=== PATIENT | male | born 1940 | race Caucasian/White ===

== ENCOUNTER → 2021-03-25 | Outpatient (CLI) | payer MEDICARE ==
[~2021-03-25] MED LIST: AMLO-187 PO; ASPI325T8 PO; CLOP75TA PO; COLE1TAB2 PO; FERR-36 PO; ISOS30TA68 PO; LEVO112T49 PO; LISI20TA18 PO; LORA2TAB89 PO; OXYC1TAB22 PO; PANT40TA77 PO
== END ==
LOC: LAB 12:28
PROVIDERS: ATTEND Surgery
DX: Z01.812 Encounter for preprocedural laboratory examination (principal); Z20.822 Contact with and (suspected) exposure to COVID-19; K40.90 Unilateral inguinal hernia, without obstruction or gangrene, not specified as recurrent
CPT/HCPCS: U0003; U0005

== ENCOUNTER 2021-03-30 07:27 | Observation (INO) | payer MEDICARE ==
[~2021-03-30 07:27] MED LIST changes: +HYDROmorphone 2 MG/ML VIAL IVP PRN; +IV RINGERS,LACTATED 1000ML 1,000 ML IV SCH; +PROCHLORPERAZINE 10 MG/2 ML VIAL. IVP PRN; +fentaNYL PF VIAL 100 MCG/2 ML VIAL IVP PRN
[2021-03-30] MEDS ORDERED: BUPIVACAINE-EPI 0.5%-1:200000 MPF 30 ML VIAL. ONE (09:02)
[2021-03-30] MEDS ORDERED: PROPOFOL 10 MG/ML (20ML) VIAL. IV ONE (09:04)
[2021-03-30] MEDS ORDERED: LIDOCAINE 2% PF 5 ML VIAL. ONE (09:05)
[2021-03-30] MEDS ORDERED: fentaNYL PF VIAL 100 MCG/2 ML VIAL ONE ×2 (09:05→10:56)
[2021-03-30] MEDS ORDERED: DEXAMETHASONE SOD PHOS 4 MG/ML VIAL ONE ×2 (09:29→09:49)
[2021-03-30] MEDS ORDERED: ONDANSETRON PF 4 MG/2 ML VIAL. ONE (09:49)
[2021-03-30] MEDS ORDERED: SEVOFLURANE 31 TO 60 MINUTES. IH ONE (09:49)
[2021-03-30] MEDS ORDERED: ePHEDrine PF IN SALINE 50 MG/10 ML SYRINGE. IV ONE (10:01)
[2021-03-30] MEDS: fentaNYL PF VIAL 100 MCG/2 ML VIAL IVP PRN ×2 (10:59→11:09)
[2021-03-30] MEDS ORDERED: HYDROmorphone 2 MG/ML VIAL IV PRN (11:00)
[2021-03-30] MEDS ORDERED: ONDANSETRON PF 4 MG/2 ML VIAL. IVP PRN (11:00)
[2021-03-30] MEDS ORDERED: NALOXONE 0.4 MG/ML VIAL. IV PRN (11:00)
[2021-03-30] MEDS ORDERED: IV NORMAL SALINE 1000ML BAG 1,000 ML IV SCH (11:00)
[2021-03-30] MEDS ORDERED: HYDROcodone/APAP 5/325MG 1 TAB TABLET PO PRN ×2 (11:00)
[2021-03-30] MEDS ORDERED: oxyCODONE/APAP 5/325 1 TAB TABLET PO PRN ×2 (11:00→11:15)
[2021-03-30] MEDS ORDERED: IV 1/2 NORMAL SALINE 1,000 ML IV SCH (11:00)
[2021-03-30] MEDS ORDERED: 0.9 % SODIUM CHLORIDE 10 ML DISP.SYRIN. IV PRN (11:00)
--- NOTE | 2021-03-30 11:06 | PDOC4 ---
Operative Note Operative Note Operative Note: Preoperative Diagnosis: Left inguinal hernia Postoperative Diagnosis: Left inguinal hernia Procedure: Left inguinal hernia repair with mesh Surgeon: Rickie Cargo Mate: Nehal ESQUIVEL Anesthesia: General EBL: 10 mL Specimen: Hernia sac to pathology Drains: None Complications: None Indication: The patient is an 81-year-old male who was referred due to a left inguinal hernia. He was offered surgical repair. The risks of surgery were discussed which include bleeding, infection, recurrence, pain, anesthetic risk, potential need for additional surgery procedure. He understands and would like to proceed. Description: The patient was taken the operating room and placed supine in the operating table. General anesthesia was performed. The left groin was shaved and prepped with ChloraPrep and draped in a standard surgical manner. An incision was made in the skin lines of left groin. Cautery dissection was carried down to the external oblique aponeurosis. The aponeurosis was opened down to the external ring. The contents of the inguinal canal were digitally mobilized and encircled with a Wayne drain. The patient had a moderate sized indirect hernia sac. There was no indirect hernia however there was some generalized weakening of the floor. The hernia sac was mobilized from the surro unding cord structures. Due to its redundancy we elected to excise a portion of it and the stump was oversewn with 2-0 Vicryl. The excised sac was sent as a specimen to pathology. The stump was inverted and the defect filled with an extra-large Phasix mesh plug. The plug was sutured into position with 2-0 Vicryl. The entire inguinal floor was then reinforced with a Prolene keyhole mesh patch. The patch was sutured into position with 2-0 Vicryl. The external oblique was closed over the mesh with 2-0 Vicryl. The subcutaneous tissue was closed with 2-0 Vicryl. The skin was approximated with 4-0 Monocryl and infiltrated with half percent Marcaine with epinephrine. Steri-Strips and a sterile dressing were applied. The patient tolerated the procedure well and was sent to the recovery room in stable condition. At the end of the case all counts were correct. DUNG JACKSON MD March 30, 2021 11:06
[2021-03-30] MEDS ORDERED: MORPHINE SULFATE 2 MG/ML VIAL. ONE ×2 (11:11→11:29)
[2021-03-30] MEDS: MORPHINE SULFATE 2 MG/ML VIAL. IVP PRN ×4 (11:15→11:45)
[2021-03-30] MEDS ORDERED: PANTOPRAZOLE 40 MG TABLET.DR. PO SCH (11:30)
[2021-03-30] MEDS ORDERED: PROCHLORPERAZINE 10 MG/2 ML VIAL. ONE (11:31)
[2021-03-30] MEDS ORDERED: HYDROmorphone 2 MG/ML VIAL ONE (11:53)
[2021-03-30] MEDS ORDERED: ISOSORBIDE MONONITRATE ER 30 MG TAB.ER.24H PO SCH (12:00)
[2021-03-30] MEDS ORDERED: amLODIPine BESYLATE 10 MG TABLET PO SCH (12:00)
[2021-03-30] MEDS ORDERED: FERROUS SULFATE 325 MG TABLET. PO SCH (12:00)
[2021-03-30] MEDS ORDERED: LISINOPRIL 20 MG TABLET PO SCH (12:00)
[2021-03-30] MEDS ORDERED: COLESTIPOL HCL 1 GM TABLET PO SCH (14:00)
[2021-03-30 15:00] VITALS: BP 154/61
--- NOTE | 2021-03-30 16:00 | NUR ---
i.e. ADMISSION: Patient arrived to unit at 12:17PM post surgery. Given x1 dose of IV dilauded for pain 8/10 LLQ and after 30 minutes given percocet as ordered. Patient A&O x4, lungs clear to auscultation, no weakness noted, surgical dressing to LLQ c/d/i with no shadowing. Vital signs stable and pain reduced to 4/10 LLQ with oral pain medication. Approximately 1500 patient requested this nurse to page Dr. Damian and request discharge, as he was told by physician surgery could be done outpatient if he felt well enough. Patient able to ambulate safely throughout room, drinking and eating, and urinating per baseline. All systems assessed and within normal limits except for LLQ abdominal pain r/t surgery. Patient provided with prescription for pain medications as written by Dr. Damian and obtained order for discharge. Patient and given post surgical instructions as per discharge order and patient discharged to home with spouse. Instructions for incision care and post op restrictions also provided.
--- NOTE | 2021-03-30 16:50 | NUR ---
Discharge Note: KRIS CALVO Discharge instructions and discharge home medications reviewed with Patient and a copy given. All questions have been answered and understanding verbalized. The following instructions and handouts were given: Diet, activity, medication list and follow up instructions provided to patient and patient's . Discontinued lines and drains: Peripheral IV discontinued and catheter intact. Patient discharged to Home or Self Care with Spouse via Wheelchair
[2021-03-31] MEDS ORDERED: LEVOTHYROXINE 112 MCG TABLET PO SCH (06:00)
[2021-03-31] MEDS ORDERED: ASPIRIN 325 MG TABLET PO SCH (09:00)
[2021-03-31] MEDS ORDERED: CLOPIDOGREL BISULFATE 75 MG TABLET PO SCH (09:00)
--- NOTE | 2021-03-31 17:13 | PATHOLOGY ---
[facility] Accession Number: [id number] . 01 Material submitted: . hernia - HERNIA SAC . 01 Clinical history: . LEFT INGIUNAL HERNIA LEFT INGUINAL HERNIA REPAIR . 02 Diagnosis: Segment of mesothelial-lined fibromembranous and adipose tissue, left inguinal hernia repair: - Hernia sac showing focal chronic inflammation and focal calcified fat necrosis. ([facility]; 03/31/2021) QTP 03/31/2021 1533 Local . 02 Electronically signed: . Junior Morales MD, Pathologist NPI- [id number] . 01 Gross description: . Received in formalin labeled "Candace, Elijah and hernia sac" and additional information from the requisition states "left inguinal hernia". Received is a previously opened congested pink-chiu hernia sac measuring 2.5 x 2.0 x 0.8 cm with a wall thickness of 0.1 cm. Sectioning reveals congested pink-chiu cut surfaces with a firm calcified white-yellow lesion measuring 0.6 x 0.5 x 0.4 cm. The specimen is representatively submitted in cassette A1 after light decalcification.([facility]; 03/30/2021) BLJ/J 03/31/2021 1532 Local . 02 Pathologist provided ICD-10: K40.90 . 02 CPT . 046722, [id number] Specimen Comment: A courtesy copy of this report has been sent to [phone] Specimen Comment: Report sent to Performed at: 01 [facility] [address], [place] [id number] MD Gabriel Merino MD Phone: [phone] Performed at: 02 [facility] [address], [place] [id number] MD Junior Morales MD Phone: [phone]
== END 2021-03-30 16:53 | disposition home or self-care (01) ==
LOC: SURG 07:27 → EDUNIT# 09:15 → 4 NORTH 10:52
PROVIDERS: ADMIT Surgery; ATTEND Surgery
DX: K40.90 Unilateral inguinal hernia, without obstruction or gangrene, not specified as recurrent (principal)
CPT/HCPCS: 49505; 96374; A4364; A4930; A6402; C1781; G0378; G0379; J0690; J0780; J1100; J1170; J2270; J2405; J2704; J3010; A4452

== ENCOUNTER → 2022-04-06 | Outpatient (CLI) | payer MEDICARE ==
[~2022-04-06] MED LIST changes: -HYDROmorphone 2 MG/ML VIAL IVP PRN; -IV RINGERS,LACTATED 1000ML 1,000 ML IV SCH; -PROCHLORPERAZINE 10 MG/2 ML VIAL. IVP PRN; -fentaNYL PF VIAL 100 MCG/2 ML VIAL IVP PRN
--- NOTE | 2022-04-06 15:59 | KCIC ---
INDICATION: Reason: Late onset Alzheimer's, dementia. / Spl. Instructions: / History: COMPARISON: None. TECHNIQUE: Axial CT images obtained through the head without intravenous contrast. One or more of the following individualized dose reduction techniques were utilized for this examinat ion: 1. Automated exposure control; 2. Adjustment of the mA and/or kV according to patient size; 3 . Use of iterative reconstruction technique. FINDINGS: No intracranial hemorrhage. No significant midline shift. Ventricles and sulci are globally prominent. Scattered foci of low attenuation within the white matter. IMPRESSION: * No acute intracranial hemorrhage. * Scattered regions of low attenuation within the white matter. Non-specific in nature but a common finding and frequently secondary to small vessel ischemic disease. Electronically signed by: Frank Ho MD (04/06/2022 1:19 PM) [id number]
== END ==
LOC: KCIC CT 12:35
PROVIDERS: ATTEND Nurse Practitioner Family
DX: I67.82 Cerebral ischemia (principal); G30.1 Alzheimer's disease with late onset; I67.89 Other cerebrovascular disease; R90.82 White matter disease, unspecified; R41.0 Disorientation, unspecified; F02.81 Dementia in other diseases classified elsewhere, unspecified severity, with behavioral disturbance
CPT/HCPCS: 70450